=== PATIENT | female | born 1950 | race Caucasian/White ===

== ENCOUNTER 2016-10-20 16:42 | Emergency (ER) | payer OTHER ==
[~2016-10-20] VITALS: Ht 167.6 cm; Wt 75.7 kg
[2016-10-20 19:29] LABS: HEMATOCRIT 41.3 % (36.0-46.0); MCH 28.1 PG (29.0-34.0); MCHC 32.7 G/DL (30.0-36.0); MEAN PLAT.VOLUME 9.4 uM^3 (9.5-12.4); PLATELET COUNT 216 K/uL (156-360); RBC DIS.WIDTH-CV 14.7 % (11.8-14.6); RBC DIS.WIDTH-SD 46.7 % (39-53); WHITE BLOOD COUNT 13.6 K/uL (4.1-10.2)
[2016-10-20 19:51] LABS: CHLORIDE 102 mEq/L (99-109); POTASSIUM 3.9 mEq/L (3.7-5.4); SODIUM 137 mEq/L (136-147)
[2016-10-20 19:53] LABS: GLUCOSE 98 mg/dL (70-99)
[2016-10-20 19:54] LABS: ANION GAP 11 MEQ/L (2-14)
[2016-10-20 19:55] LABS: TOTAL BILIRUBIN 0.7 mg/dL (0.0-1.0)
[2016-10-20 19:56] LABS: ALKALINE PHOSPHATASE 188 IU/L (3-129)
[2016-10-20 19:57] LABS: GFR ESTIMATE (CALCULATED) > 59 mL/min/
[2016-10-20 19:58] LABS: UREA NITROGEN (BUN) 16 mg/dL (9-23)
[2016-10-20 20:41] LABS: INTERNAL CONTROL VALID? YES; MONOSPOT (MONONUCLEOSIS SEROL) NEGATIVE
[2016-10-20] MEDS ORDERED: SUMATRIPTAN SU100 MG PO (22:20)
[2016-10-20] MEDS ORDERED: AMOX TR-K CLV1 EAC4 PO (22:20)
[2016-10-20 23:00] LABS: LIPASE 29 U/L (1.0-51.0)
[2016-10-20 23:12] VITALS: BP 103/63
[2016-10-20 23:52] LABS: ABS NEUTROPHIL COUNT 5.8; EOSINOPHIL ABS CT 0; INSTRUMENT ABS NEUTROPHIL CT 2.6 K/uL; LYMPHOCYTES 19.1 % (15.0-45.0); PLAT.SUFFICIENCY ADEQUATE; POIKILOCYTOSIS 1+; POLYCHROMASIA 1+; SEG.NEUTROPHILS 42.7 % (46.0-76.0); SMUDGE CELLS 11.8
== END 2016-10-20 23:53 | disposition home or self-care (01) ==
LOC: EME 16:42
DX: R53.1 Weakness (principal); R94.5 Abnormal results of liver function studies
CPT/HCPCS: 76705; 80053; 83690; 85007; 85025 91; 85027; 86308; 99281; 99284; G0480